=== PATIENT | male | born 2000 | race Hispanic/Latino ===

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

== ENCOUNTER 2023-01-04 07:20 | Emergency (ER) | payer BC, SELFPAY ==
[2023-01-04] MEDS ORDERED: IBUPROFEN 200 MG TAB PO ONE (08:01)
[2023-01-04 08:59] LABS: SARS-COV-2 RT PCR NEGATIVE (NEGATIVE)
--- NOTE | 2023-01-04 09:36 | EDPHYS ---
Physician Documentation [facility] Name: Cholo Patterson Age: 22 yrs Sex: Male : 2000 Arrival Date: 01/04/2023 Time: 07:24 Bed 12 Private MD: ED Physician Chay Maldonado HPI: 01/04 09:30 This 22 yrs old Male presents to ER via Ambulatory with complaints of Fever, collin Sore Throat, Headache. 09:30 The patient reports fever, that was measured at 100 degrees Fahrenheit. Onset: The collin symptoms/episode began/occurred 2 day(s) ago. Modifying factors: there are no obvious modifying factors. Associated signs and symptoms: Pertinent positives: myalgias, sore throat. Severity of symptoms: At their worst the symptoms were mild in the emergency department the symptoms are unchanged. The patient has not experienced similar symptoms in the past. Historical: - Allergies: 07:46 No Known Allergies; ss - Home Meds: 07:46 None [Active]; ss - PMHx: 07:46 None; ss - PSHx: 07:46 L knee repair; ss - Immunization history:: Client reports having NOT received the Covid vaccine. - Social history:: Smoking status: Reported history of juuling and/or vaping. ROS: 09:32 Constitutional: Negative for fever, chills, and weight loss, Eyes: Negative for injury, collin pain, redness, and discharge, Neck: Negative for injury, pain, and swelling, Cardiovascular: Negative for chest pain, palpitations, and edema, Respiratory: Negative for shortness of breath, cough, wheezing, and pleuritic chest pain, Abdomen/GI: Negative for abdominal pain, nausea, vomiting, diarrhea, and constipation, Back: Negative for injury and pain, : Negative for injury, bleeding, discharge, and swelling, MS/Extremity: Negative for injury and deformity, Skin: Negative for injury, rash, and discoloration, Neuro: Negative for headache, weakness, numbness, tingling, and seizure, Psych: Negative for depression, anxiety, suicide ideation, homicidal ideation, and hallucinations, Allergy/Immunology: Negative for hives, rash, and allergies, Endocrine: Negative for neck swelling, polydipsia, polyuria, polyphagia, and marked weight changes, Hematologic/Lymphatic: Negative for swollen nodes, abnormal bleeding, and unusual bruising. 09:32 ENT: Positive for rhinorrhea, sore throat. Exam: 09:32 Constitutional: This is a well developed, well nourished patient who is awake, alert, collin and in no acute distress. Head/Face: Normocephalic, atraumatic. Eyes: Pupils equal round and reactive to light, extra-ocular motions intact. Lids and lashes normal. Conjunctiva and sclera are non-icteric and not injected. Cornea within normal limits. Periorbital areas with no swelling, redness, or edema. Neck: Trachea midline, no thyromegaly or masses palpated, and no cervical lymphadenopathy. Supple, full range of motion without nuchal rigidity, or vertebral point tenderness. No Meningismus. Chest/axilla: Normal chest wall appearance and motion. Nontender with no deformity. No lesions are appreciated. Cardiovascular: Regular rate and rhythm with a normal S1 and S2. No gallops, murmurs, or rubs. Normal PMI, no JVD. No pulse deficits. Respiratory: Lungs have equal breath sounds bilaterally, clear to auscultation and percussion. No rales, rhonchi or wheezes noted. No increased work of breathing, no retractions or nasal flaring. Abdomen/GI: Soft, non-tender, with normal bowel sounds. No distension or tympany. No guarding or rebound. No evidence of tenderness throughout. Back: No spinal tenderness. No costovertebral tenderness. Full range of motion. Male : Normal genitalia with no discharge or lesions. Skin: Warm, dry with normal turgor. Normal color with no rashes, no lesions, and no evidence of cellulitis. MS/ Extremity: Pulses equal, no cyanosis. Neurovascular intact. Full, normal range of motion. Neuro: Awake and alert, GCS 15, oriented to person, place, time, and situation. Cranial nerves II-XII grossly intact. Motor strength 5/5 in all extremities. Sensory grossly intact. Cerebellar exam normal. Normal gait. Psych: Awake, alert, with orientation to person, place and time. Behavior, mood, and affect are within normal limits. 09:32 ENT: Posterior pharynx: Tonsils: bilaterally enlarged, with erythema, with exudate, Uvula: normal, midline, erythema, swelling, that is mild, erythema, that is mild, exudate, is not appreciated, peritonsillar mass, is not appreciated, pooling of secretions, is not appreciated. Vital Signs: 07:44 BP 133 / 73; Pulse 90; Resp 14; Temp 99.4(O); Pulse Ox 98% on R/A; Weight 77.11 kg; ss Height 5 ft. 6 in. (167.64 cm); Pain 8/10; 07:44 Body Mass Index 27.44 (77.11 kg, 167.64 cm) MDM: 07:30 Patient medically screened. [facility] 09:33 Differential diagnosis: viral Infection, bacterial infection, URI, pneumonia. Data collin reviewed: vital signs, nurses notes, lab test result(s), Flu: negative. Consideration of Admission/Observation Escalation of care including admission/observation considered. Test considered but Not performed: Other Details mono spot. 01/04 07:31 Order name: Strep [facility] 01/04 07:31 Order name: COVID-19/FLU A+B [facility] 01/04 08:34 Order name: Group A Streptococcus Rapid Sc; Complete Time: 09:17 EDMS 01/04 08:59 Order name: COVID-19/FLU A+B; Complete Time: 09:17 EDMS Administered Medications: 08:01 Drug: Motrin (ibuprofen) 600 mg Route: PO; ss 09:00 Follow up: Response: No adverse reaction 09:54 Drug: Bicillin L-A (penicillin G Benzathine) 1.2 million units Route: IM; Site: right ss gluteus; 10:10 Follow up: Response: No adverse reaction Disposition Summary: 01/04/23 09:36 Discharge Ordered Location: Home collin Problem: new collin Symptoms: have improved collin Condition: Stable collin Diagnosis - Acute tonsillitis, unspecified collin - Fever, unspecified collin Followup: collin - With: Private Physician - When: 2 - 3 days - Reason: Recheck today's complaints, Continuance of care, Re-evaluation by your physician Discharge Instructions: - Discharge Summary Sheet collin - Fever, Adult collin - Tonsillitis collin - Tonsillitis, [id number] collin - Fever, Adult, [id number] collin Forms: - Medication Reconciliation Form collin - Thank You Letter collin - Antibiotic Education collin - Prescription Opioid Use collin - Work release form [id number] Signatures: Dispatcher [employer] Chay Awan MD MD cha Smirch, Shelby, RN RN ss
--- NOTE | 2023-01-04 09:36 | ER ---
Nurse's Notes [facility] Claudia Name: Cholo Patterson Age: 22 yrs Sex: Male : 2000 Arrival Date: 01/04/2023 Time: 07:24 Bed 12 Private MD: Diagnosis: Acute tonsillitis, unspecified;Fever, unspecified Presentation: 01/04 07:44 Chief complaint: Patient states: sore throat that began Wednesday. Coronavirus screen: ss Client denies travel out of the [place] in the last 14 days. Ebola Screen: Patient denies exposure to infectious person. Patient denies travel to an Ebola-affected area in the 21 days before illness onset. Initial Sepsis Screen: Does the patient meet any 2 criteria? No. Patient's initial sepsis screen is negative. Does the patient have a suspected source of infection? No. Patient's initial sepsis screen is negative. Risk Assessment: Do you want to hurt yourself or someone else? Patient reports no desire to harm self or others. Onset of symptoms was January 02, 2023. 07:44 Method Of Arrival: Ambulatory 07:44 Acuity: MANE 4 Historical: - Allergies: 07:46 No Known Allergies; ss - Home Meds: 07:46 None [Active]; ss - PMHx: 07:46 None; ss - PSHx: 07:46 L knee repair; ss - Immunization history:: Client reports having NOT received the Covid vaccine. - Social history:: Smoking status: Reported history of juuling and/or vaping. Screenin:47 [facility] ED Fall Risk Assessment (Adult) History of falling in the last 3 months, ss including since admission No falls in past 3 months (0 pts). Abuse screen: Denies threats or abuse. Denies injuries from another. Nutritional screening: No deficits noted. Tuberculosis screening: Never had TB. Assessment: 07:47 Pain: Complains of pain in throat Pain currently is 8 out of 10 on a pain scale. Neuro: ss Level of Consciousness is awake, alert. Respiratory: Airway is patent Respiratory effort is even, unlabored, Respiratory pattern is regular, symmetrical. Derm: Skin is intact, is healthy with good turgor, Skin is dry, Skin is pink, warm \T\ dry. normal. 09:55 General: Appears in no apparent distress. comfortable. Respiratory: Respiratory effort ss is even, unlabored. Vital Signs: 07:44 BP 133 / 73; Pulse 90; Resp 14; Temp 99.4(O); Pulse Ox 98% on R/A; Weight 77.11 kg; ss Height 5 ft. 6 in. (167.64 cm); Pain 8/10; 07:44 Body Mass Index 27.44 (77.11 kg, 167.64 cm) ss ED Course: 07:24 Patient arrived in ED. mr 07:30 Chay Maldonado MD is Attending Physician. [facility] 07:46 Triage completed. ss 07:46 Arm band placed on right wrist. ss 07:47 Patient has correct armband on for positive identification. Bed in low position. ss 08:01 Fang Hairston, RN is Primary Nurse. ss 08:01 COVID-19/FLU A+B Sent. ss 08:01 Strep Sent. ss 10:20 No provider procedures requiring assistance completed. Patient did not have IV access ss during this emergency room visit. Administered Medications: 08:01 Drug: Motrin (ibuprofen) 600 mg Route: PO; ss 09:00 Follow up: Response: No adverse reaction ss 09:54 Drug: Bicillin L-A (penicillin G Benzathine) 1.2 million units Route: IM; Site: right ss gluteus; 10:10 Follow up: Response: No adverse reaction ss Medication: 07:47 VIS not applicable for this client. ss Outcome: 09:36 Discharge ordered by . collin 10:20 Discharged to home ambulatory. ss 10:20 Condition: good 10:20 Discharge instructions given to patient, Instructed on discharge instructions, follow up and referral plans. Demonstrated understanding of instructions, follow-up care. 10:20 Patient left the ED. ss Signatures: Chay Maldonado MD MD cha Rivera, Nathalie mr Fang Hairston, RN RN ss
[2023-01-04] MEDS ORDERED: PEN G BENZ LA 1.2MU/2ML SYRINGE IM ONE (09:53)
[2023-01-04 10:28] VITALS: BP 133/73; TEMP 99.4; O2SAT 98
== END 2023-01-04 10:20 | disposition home or self-care (01) ==
LOC: ER 07:20
DX: J03.90 Acute tonsillitis, unspecified (principal); Z20.822 Contact with and (suspected) exposure to COVID-19
CPT/HCPCS: 87070; 87081; 0240U; 96372; 99283; J0561

== ENCOUNTER 2024-03-22 05:20 | Emergency (ER) | payer BC, SELFPAY ==
[2024-03-22] MEDS ORDERED: IBUPROFEN 400 MG TAB ONE (05:28)
[2024-03-22] MEDS ORDERED: CEFTRIAXONE 1000 MG/VIAL ONE (05:41)
[2024-03-22] MEDS ORDERED: DIPHENHYDRAMINE 25 MG TAB/CAP ONE (05:41)
[2024-03-22] MEDS ORDERED: LIDOCAINE 1% MPF 2 ML AMPULE ONE (05:41)
[2024-03-22] MEDS ORDERED: NA CHLORIDE 0.9% 1,000 ML ONE (05:42)
--- NOTE | 2024-03-22 06:30 | ER ---
Nurse's Notes [facility] Della Name: Cholo Patterson Age: 23 yrs Sex: Male : 2000 Arrival Date: 03/22/2024 Time: 05:20 Bed 2 Private MD: Diagnosis: Streptococcal tonsillitis;Fever, unspecified Presentation: 03/22 05:29 Chief complaint: EMS states: fever, bodyaches, sore throat. Coronavirus screen: Vaccine vc1 status: Patient reports being unvaccinated. Client denies travel out of the [place] in the last 14 days. chills, fatigue, fever, headache, muscle pain, sore throat, Client presents with at least one sign or symptom that may indicate coronavirus-19. Ebola Screen: Patient negative for fever greater than or equal to 101.5 degrees Fahrenheit, and additional compatible Ebola Virus Disease symptoms Patient denies exposure to infectious person. Patient denies travel to an Ebola-affected area in the 21 days before illness onset. No symptoms or risks identified at this time. Initial Sepsis Screen: Does the patient meet any 2 criteria? Temp <36.0*C (96.8*F)) or > 38.3*C (100.9*F). HR > 90 bpm. Yes Does the patient have a suspected source of infection? No. Patient's initial sepsis screen is negative. Risk Assessment: Do you want to hurt yourself or someone else? Patient reports no desire to harm self or others. Onset of symptoms was March 19, 2023. Care prior to arrival: Medication(s) given: Tylenol, 650 mg, IV initiated. 20 GA, in the left antecubital area. Activity prior to arrival: None. Mechanism of Injury: No Mechanism of Injury. Transition of care: patient was not received from another setting of care. 05:29 Method Of Arrival: EMS: [facility] vc1 05:29 Acuity: MANE 3 vc1 Triage Assessment: 05:34 General: Appears in no apparent distress. uncomfortable, ill, Behavior is calm, vc1 cooperative, appropriate for age, Reports fever for 1-2 days, feeling ill for. Pain: Complains of pain in back, head, throat Pain does not radiate. Pain currently is 10 out of 10 on a pain scale. Quality of pain is described as aching, sharp, Pain began 2-3 days ago. Is continuous, Aggravated by eating, drinking, Noted to be grimacing. EENT: Throat has patchy exudate has enlarged tonsils bilaterally Reports pain when swallowing Pain is 10 out of 10 on a pain scale. Neuro: Level of Consciousness is awake, alert, obeys commands, Oriented to person, place, time, situation, Appropriate for age. Cardiovascular: Heart tones S1 S2 Capillary refill < 3 seconds Rhythm is sinus tachycardia. Respiratory: Airway is patent Trachea midline Respiratory effort is even, unlabored, Respiratory pattern is regular, symmetrical, Breath sounds are clear bilaterally. GI: Abdomen is flat, non-distended. : No deficits noted. No signs and/or symptoms were reported regarding the genitourinary system. Derm: Skin is intact, is healthy with good turgor, Skin is dry, Skin is normal, Skin temperature is hot. Musculoskeletal: Circulation, motion, and sensation intact. Range of motion: intact in all extremities, Reports pain in back. Historical: - Allergies: 05:33 No Known Allergies; vc1 - Home Meds: 05:33 None [Active]; vc1 - PMHx: 05:33 None; vc1 - PSHx: 05:33 L knee repair; vc1 05:34 right testicle removed; vc1 - Immunization history:: Client reports having NOT received the Covid vaccine. Flu vaccine is not up to date. - Infectious Disease History:: Denies. - Social history:: Smoking status: Reported history of juuling and/or vaping. - Family history:: not pertinent. - Coronavirus screen:: The patient has NOT traveled to [place] in the past 14 days. The patient has NOT had contact with known/suspected case of Coronavirus?. - Ebola Screening: : Patient negative for fever greater than or equal to 101.5 degrees Fahrenheit, and additional compatible Ebola Virus Disease symptoms Patient denies exposure to infectious person Patient denies travel to an Ebola-affected area in the 21 days before illness onset No symptoms or risks identified at this time. Screenin:39 Abuse screen: Denies threats or abuse. Nutritional screening: No deficits noted. vc1 Tuberculosis screening: No symptoms or risk factors identified. 06:12 [facility] ED Fall Risk Assessment (Adult) History of falling in the last 3 months, vc1 including since admission No falls in past 3 months (0 pts) Confusion or Disorientation No (0 pts) Intoxicated or Sedated No (0 pts) Impaired Gait No (0 pts) Mobility Assist Device Used No (0 pt) Altered Elimination No (0 pt) Score/Fall Risk Level 0 - 2 = Low Risk Oriented to surroundings, Maintained a safe environment, Educated pt \T\ family on fall prevention, incl call for assistance when getting out of bed. Vital Signs: 05:29 BP 156 / 87; Pulse 122; Resp 20; Temp 103(O); Pulse Ox 100% ; Weight 78.47 kg; Height 5 vc1 ft. 5 in. ; Pain 10/10; 06:10 BP 147 / 82; Pulse 115; Resp 20; Pulse Ox 99% ; vc1 06:41 Temp 99.3(O); vc1 05:29 Body Mass Index 28.79 (78.47 kg, 165.1 cm) vc1 05:29 Pain Scale: Adult vc1 Marie Coma Score: 06:25 Eye Response: spontaneous(4). Motor Response: obeys commands(6). Verbal Response: sp4 oriented(5). Total: 15. ED Course: 05:26 Patient arrived in ED. jb4 05:26 Dallin Meyer MD is Attending Physician. sp4 05:29 Larissa Page RN is Primary Nurse. vc1 05:33 Triage completed. vc1 05:38 Arm band placed on right wrist. vc1 06:12 Patient has correct armband on for positive identification. Bed in low position. Call vc1 light in reach. Pulse ox on. NIBP on. 06:12 No provider procedures requiring assistance completed. Maintain EMS IV. Dressing vc1 intact. Site clean \T\ dry. Gauge \T\ site: 20lac. 06:49 Provided Education on: complete abx. vc1 06:49 IV discontinued, intact, bleeding controlled, No redness/swelling at site. Pressure vc1 dressing applied. Administered Medications: 05:29 Drug: Ibuprofen PO 800 mg PO once Route: PO; vc1 06:45 Follow up: Response: No adverse reaction; Marked relief of symptoms; Temperature is vc1 decreased 05:58 Drug: NS 0.9% IV 1000 ml IV at 1 bolus Per protocol; 1000 mL bolus Route: IV; Rate: 1 vc1 bolus; Site: left antecubital; 06:49 Follow up: IV Status: Completed infusion; IV Intake: 1000ml vc1 05:58 Drug: Rocephin (cefTRIAXone) IM 1 grams IM once Route: IM; Site: left ventrogluteal; vc1 06:45 Follow up: Response: No adverse reaction; Marked relief of symptoms vc1 05:58 Drug: diphenhydrAMINE PO 50 mg PO once Route: PO; vc1 06:45 Follow up: Response: No adverse reaction; Marked relief of symptoms vc1 Medication: 06:12 VIS not applicable for this client. vc1 Intake: 06:49 IV: 1000ml; Total: 1000ml. vc1 Outcome: 06:29 Discharge ordered by sp4 06:48 Discharged to home ambulatory, vc1 06:48 Condition: good 06:48 Discharge instructions given to patient, Instructed on discharge instructions, follow up and referral plans. medication usage, Demonstrated understanding of instructions, follow-up care, medications, Prescriptions given X 3, 06:50 Patient left the ED. vc1 Signatures: Don Sherman RN RN jb4 Larissa Page RN RN vc1 Dallin Meyer MD MD sp4 Corrections: (The following items were deleted from the chart) 05:34 05:33 PSHx: right testicle removed (L knee repair); vc1 vc1
--- NOTE | 2024-03-22 06:30 | EDPHYS ---
Physician Documentation [facility] Claudia Name: Cholo Patterson Age: 23 yrs Sex: Male : 2000 Arrival Date: 03/22/2024 Time: 05:20 Bed 2 Private MD: ED Physician Dallin Meyer HPI: 03/22 05:26 This 23 yrs old Male presents to ER via Unassigned with complaints of fever, sp4 sore throat. 06:24 23 -year-old male presents with acute onset of fever also sore throat starting. sp4 06:25 Starting approximately 5 days ago associated with bodyaches.. sp4 Historical: - Allergies: 05:33 No Known Allergies; vc1 - Home Meds: 05:33 None [Active]; vc1 - PMHx: 05:33 None; vc1 - PSHx: 05:33 L knee repair; vc1 05:34 right testicle removed; vc1 - Immunization history:: Client reports having NOT received the Covid vaccine. Flu vaccine is not up to date. - Infectious Disease History:: Denies. - Social history:: Smoking status: Reported history of juuling and/or vaping. - Family history:: not pertinent. - Coronavirus screen:: The patient has NOT traveled to [place] in the past 14 days. The patient has NOT had contact with known/suspected case of Coronavirus?. - Ebola Screening: : Patient negative for fever greater than or equal to 101.5 degrees Fahrenheit, and additional compatible Ebola Virus Disease symptoms Patient denies exposure to infectious person Patient denies travel to an Ebola-affected area in the 21 days before illness onset No symptoms or risks identified at this time. ROS: 06:25 Constitutional: Positive fever, positive body aches, positive sore throat, positive sp4 feeling unwell 06:25 All other systems are negative, Exam: 06:25 Constitutional: This is a well developed, well nourished patient who is awake, alert, sp4 and in no acute distress. Head/Face: Normocephalic, atraumatic. Eyes: Pupils equal round and reactive to light, extra-ocular motions intact. Lids and lashes normal. Conjunctiva and sclera are not injected. Cornea within normal limits. Periorbital areas with no swelling, redness, or edema. ENT: Nares patent. No nasal discharge, no septal abnormalities noted. Tympanic membranes are normal and external auditory canals are clear. Oropharynx with diffuse bilateral redness, bilateral tonsillar enlargement, bilateral uvular swelling, bilateral exudates to tonsils Neck: Trachea midline, no thyromegaly or masses palpated, and no cervical lymphadenopathy. Supple, full range of motion without nuchal rigidity, or vertebral point tenderness. Chest/axilla: Normal chest wall appearance and motion. Nontender with no deformity. No lesions are appreciated. Cardiovascular: Regular rate and rhythm with a normal S1 and S2. No gallops, murmurs, or rubs. Normal PMI, no JVD. No pulse deficits. Respiratory: Lungs have equal breath sounds bilaterally, clear to auscultation and percussion. No rales, rhonchi or wheezes noted. No increased work of breathing, no retractions or nasal flaring. Abdomen/GI: Soft, with normal bowel sounds. No distension or tympany. No guarding or rebound. No evidence of tenderness throughout. Back: No spinal tenderness. No costovertebral tenderness. Skin: Warm, dry with normal turgor. Normal color with no rashes, no lesions, and no evidence of cellulitis. MS/ Extremity: Pulses equal, no cyanosis. Neurovascular intact. Full, normal range of motion. Neuro: Awake and alert, GCS 15, oriented to person, place, time, and situation. Cranial nerves II-XII grossly intact. Motor strength 5/5 in all extremities. Sensory grossly intact. Psych: Awake, alert, with orientation to person, place and time. Behavior, mood, and affect are within normal limits Vital Signs: 05:29 BP 156 / 87; Pulse 122; Resp 20; Temp 103(O); Pulse Ox 100% ; Weight 78.47 kg; Height 5 vc1 ft. 5 in. ; Pain 10/10; 06:10 BP 147 / 82; Pulse 115; Resp 20; Pulse Ox 99% ; vc1 06:41 Temp 99.3(O); vc1 05:29 Body Mass Index 28.79 (78.47 kg, 165.1 cm) vc1 05:29 Pain Scale: Adult vc1 Marie Coma Score: 06:25 Eye Response: spontaneous(4). Motor Response: obeys commands(6). Verbal Response: sp4 oriented(5). Total: 15. MDM: 05:27 Patient medically screened. sp4 06:27 Differential Diagnosis altered mental status, sepsis, flu. Data reviewed: vital signs, sp4 nurses notes, EMS record. ED course: Was given Rocephin for signs of severe tonsillitis. Will prescribe cefdinir wound and started on and also ibuprofen. . 03/22 06:03 Order name: Glucose, Ancillary Testing; Complete Time: 06:20 EDMS 03/22 05:32 Order name: Accucheck Blood Glucose; Complete Time: 05:58 sp4 Administered Medications: 05:29 Drug: Ibuprofen PO 800 mg PO once Route: PO; vc1 06:45 Follow up: Response: No adverse reaction; Marked relief of symptoms; Temperature is vc1 decreased 05:58 Drug: NS 0.9% IV 1000 ml IV at 1 bolus Per protocol; 1000 mL bolus Route: IV; Rate: 1 vc1 bolus; Site: left antecubital; 06:49 Follow up: IV Status: Completed infusion; IV Intake: 1000ml vc1 05:58 Drug: Rocephin (cefTRIAXone) IM 1 grams IM once Route: IM; Site: left ventrogluteal; vc1 06:45 Follow up: Response: No adverse reaction; Marked relief of symptoms vc1 05:58 Drug: diphenhydrAMINE PO 50 mg PO once Route: PO; vc1 06:45 Follow up: Response: No adverse reaction; Marked relief of symptoms vc1 Disposition Summary: 03/22/24 06:29 Discharge Ordered Notes: Location: Home sp4 Problem: new sp4 Symptoms: have improved sp4 Condition: Stable sp4 Diagnosis - Streptococcal tonsillitis sp4 - Fever, unspecified sp4 Followup: sp4 - With: Private Physician - When: 7 - 10 days - Reason: Recheck today's complaints Discharge Instructions: - Discharge Summary Sheet sp4 - Tonsillitis, [id number] sp4 Forms: - Work release form vc1 - Patient Portal Instructions sp4 Prescriptions: - cefdinir 300 mg Oral capsule - take 1 capsule ORAL route 2 times per day for 10 days; 20 capsule; Refills: 0, sp4 Product Selection Permitted - Ibuprofen 800 mg Oral tablet - take 1 tablet ORAL route every 6 hours As needed take with food; 30 tablet; sp4 Refills: 0, Product Selection Permitted - ondansetron 8 mg Oral Tablet,disintegrating - take 1 tablet ORAL route every 8 hours PRN nusea; 30 tablet; Refills: 0, sp4 Product Selection Permitted Signatures: Larissa Page RN RN vc1 Dallin Meyer MD MD sp4 Corrections: (The following items were deleted from the chart) 05:34 05:33 PSHx: right testicle removed (L knee repair); vc1 vc1
[2024-03-22 07:17] VITALS: BP 147/82; TEMP 99.3; O2SAT 99
== END 2024-03-22 06:50 | disposition home or self-care (01) ==
LOC: ER 05:20
DX: J03.00 Acute streptococcal tonsillitis, unspecified (principal)
CPT/HCPCS: 82947; J0696; J7030